=== PATIENT | male | born 1955 | race Caucasian/White ===

== ENCOUNTER → 2020-07-26 16:02 | Outpatient (CLI) | payer MEDICARE, SELFPAY ==
--- NOTE | 2020-07-26 16:05 | DI.MRI.S_ITS ---
PROCEDURE: MR KNEE RT WO/W CON INDICATIONS: Pain in right knee TECHNIQUE: Noncontrast sagittal PD fast spin echo and T2 fast spin echo with fat saturation, sagittal 3-D FLASH with fat saturation; coronal T1 spin echo and PD fast spin echo with fat saturation, and axial T1 spin echo and PD fast spin echo with fat saturation through the knee. Post-contrast axial, coronal, and sagittal T1 spin echo with fat saturation through the knee. COMPARISON: [facility] ([facility]), CR, XR KNEE RT 3V, 06/09/2020, 10:34. FINDINGS: Menisci: Medial meniscus: Macerated ill-defined tear involving the posterior horn and body of the medial meniscus with abnormal signal extending to the undersurface as well as the superior articular surface, and marked truncation of the free margin of the body. There is also near complete extrusion. Lateral meniscus: Oblique undersurface tear involving body of the lateral meniscus noted. Cruciate ligaments: Anterior cruciate ligament: Not well seen in keeping with rupture, technically age indeterminate Posterior cruciate ligament: Intact. Medial structures: The medial collateral ligament: There is medial bowing of the medial collateral ligament, with mild internal signal changes and no complete rupture. There is adjacent soft tissue edema. The appearance could reflect reactive changes to medial compartment pathology, versus low-grade sprain of the MCL. Semimembranosus tendon: Intact. Visualized pes anserinus tendons: Intact. Bursal fluid: none. Lateral structures: The lateral collateral ligament intact. Biceps femoris tendon appears intact. Popliteus tendon grossly unremarkable. Iliotibial band appears intact. Anterior structures: Quadriceps tendon: Intact. Medial patellofemoral ligament: Intact. Lateral patellofemoral ligament: Intact. Patellar tendon: Mild tendinopathy. Anterior soft tissues: Prepatellar and superficial infrapatellar subcutaneous edema/fluid. Deep infrapatellar region: Normal. Bones and cartilage: Marrow: Marrow edema involving the subchondral medial femoral condyle and tibial plateau which could be reactive to degenerative changes. Medial compartment: Full-thickness loss of the femoral and tibial articular cartilage with subchondral sclerosis. There is diffuse bulky osteophyte formation. Lateral compartment: Diffuse partial-thickness loss and intrasubstance signal changes of the femoral and tibial cartilage. Patellofemoral compartment: Diffuse surface fraying and partial thickness loss of the patellar and femoral trochlear cartilage. Joint space: Moderate joint effusion. Bryant's cyst measuring approximately 5 cm in the cephalocaudal dimension. Numerous posterior joint space loose bodies, also seen within the Bryant's cyst measuring up to 1.1 cm for example image 22/9. No suspicious enhancement. Reactive synovitis is noted on postcontrast enhanced pulse sequences. IMPRESSION: Severe degenerative joint disease, with moderate joint effusion and numerous posterior loose bodies as detailed above and depicted on the montage image. Full-thickness articular cartilage loss in the medial compartment. Macerated ill-defined tear involving the body and posterior horn of the medial meniscus, with near complete extrusion. Adjacent MCL changes as above Oblique undersurface tear of the lateral meniscal body. Rupture of the anterior cruciate ligament. Bryant's cyst. No suspicious enhancement Dictated by: Jerel Santamaria M.D. on 07/27/2020 at 8:13 Approved by: Jerel Santamaria M.D. on 07/27/2020 at 8:23
== END ==
PROVIDERS: PCP Physician Assistant Medical; Referring Provider Physician Assistant Medical; Visit Provider Physician Assistant Medical
DX: M25.561 Pain in right knee (principal); S83.241A Other tear of medial meniscus, current injury, right knee, initial encounter; R93.6 Abnormal findings on diagnostic imaging of limbs; S83.281A Other tear of lateral meniscus, current injury, right knee, initial encounter; S83.511A Sprain of anterior cruciate ligament of right knee, initial encounter; M17.11 Unilateral primary osteoarthritis, right knee; M71.21 Synovial cyst of popliteal space [Baker], right knee; M25.461 Effusion, right knee; G89.29 Other chronic pain; Z98.890 Other specified postprocedural states
CPT/HCPCS: 73723; A9579

== ENCOUNTER → 2021-04-25 11:25 | Outpatient (CLI) | payer MEDICARE, SELFPAY ==
[2021-04-25 19:00] LABS: Alanine Aminotransferase 23 IU/L (<50); Albumin 4.7 g/dL (3.5-5.0); Albumin Globulin Ratio 1.9 (1.0-2.8); Alkaline Phosphatase 85 U/L (38-126); Aspartate Aminotransferase 29 IU/L (17-59); BUN Creatinine Ratio 17.7 (6-22); Bilirubin Total 0.6 mg/dL (0.2-1.3); Blood Urea Nitrogen 22 mg/dL (9-20); Calcium 9.3 mg/dL (8.4-10.2); Carbon Dioxide 27 mmol/L (22-32); Chloride 102 mmol/L (98-107); Cholesterol 211 mg/dL (140-199); Estimated Glomerular Filt Rate 58.3 mL/min (>60); Globulin 2.5 g/dL (1.7-4.1); Glucose 93 mg/dL (80-110); HDL Cholesterol 53 mg/dL (40-60); HEMOLYSIS < 15 (0-50); LDL Cholesterol Calculated 133 mg/dL (<100); Potassium 4.8 mmol/L (3.4-5.1); Sodium 137 mmol/L (137-145); Total Protein 7.2 g/dL (6.3-8.2); Triglycerides 126 mg/dL (35-150)
[2021-04-25 19:16] LABS: Add Manual Diff / Slide Review NO; Basophils Absolute Auto 0 /uL (0-100); Basophils Percent Auto 0.8 % (0-2); Eosinophils Absolute Auto 100 /uL (0-450); Eosinophils Percent Auto 2.5 % (2-4); Hematocrit 45.2 % (41-53); Hemoglobin 15.4 g/dL (13.5-17.5); Lymphocytes Absolute Auto 1300 /uL (1100-4500); Mean Corpuscular HGB Conc 34.1 % (30-36); Mean Corpuscular Volume 90.8 fL (80-100); Monocytes Absolute Auto 600 /uL (0-900); Monocytes Percent Auto 11.7 % (3-14); Neutrophils Absolute Auto 3400 /uL (1500-7000); Platelet Count 193 X10^3/uL (150-400); Red Blood Cell Count 4.98 X10^6/uL (4.5-5.9); Red Cell Distribution Width 13.8 % (11.6-14.8); White Blood Cell Count 5.5 X10^3/uL (4.5-11.0)
[2021-04-25 19:20] LABS: TSH w/ Reflex to FT4 1.38 uIU/mL (0.47-4.68)
[2021-04-25 19:21] LABS: Prostate Specific Antigen 0.784 ng/mL (0.10-4.00)
== END ==
PROVIDERS: PCP Physician Assistant Medical; Visit Provider Physician Assistant Medical
DX: Z12.11 Encounter for screening for malignant neoplasm of colon (principal); Z12.5 Encounter for screening for malignant neoplasm of prostate; Z13.0 Encounter for screening for diseases of the blood and blood-forming organs and certain disorders involving the immune mechanism; Z13.220 Encounter for screening for lipoid disorders; Z13.228 Encounter for screening for other metabolic disorders; Z13.29 Encounter for screening for other suspected endocrine disorder
CPT/HCPCS: 80053; 80061; 84153; 84443; 85025

== ENCOUNTER → 2021-12-03 10:20 | Outpatient (CLI) | payer MEDICARE, SELFPAY ==
[2021-12-03 19:23] LABS: Alanine Aminotransferase 31 IU/L (<50); Albumin 4.3 g/dL (3.5-5.0); Albumin Globulin Ratio 1.6 (1.0-2.8); Alkaline Phosphatase 96 U/L (38-126); Aspartate Aminotransferase 34 IU/L (17-59); BUN Creatinine Ratio 14.5 (6-22); Bilirubin Total 0.9 mg/dL (0.2-1.3); Blood Urea Nitrogen 18 mg/dL (9-20); Calcium 9.1 mg/dL (8.4-10.2); Carbon Dioxide 25 mmol/L (22-32); Chloride 102 mmol/L (98-107); Cholesterol 201 mg/dL (140-199); Estimated Glomerular Filt Rate > 60 mL/min (>60); Globulin 2.7 g/dL (1.7-4.1); Glucose 100 mg/dL (80-110); HDL Cholesterol 50 mg/dL (40-60); HEMOLYSIS 24 (0-50); LDL Cholesterol Calculated 129 mg/dL (<100); Potassium 4.4 mmol/L (3.4-5.1); Sodium 137 mmol/L (137-145); Triglycerides 108 mg/dL (35-150)
== END ==
PROVIDERS: PCP Physician Assistant Medical; Visit Provider Physician Assistant Medical
DX: E78.5 Hyperlipidemia, unspecified (principal); R94.4 Abnormal results of kidney function studies
CPT/HCPCS: 80053; 80061

== ENCOUNTER → 2022-06-19 10:45 | Outpatient (CLI) | payer MEDICARE, SELFPAY ==
[2022-06-19 20:08] LABS: Alanine Aminotransferase 33 IU/L (<50); Albumin 4.1 g/dL (3.5-5.0); Albumin Globulin Ratio 1.6 (1.0-2.8); Alkaline Phosphatase 90 U/L (38-126); Aspartate Aminotransferase 30 IU/L (17-59); BUN Creatinine Ratio 20.6 (6-22); Bilirubin Total 0.9 mg/dL (0.2-1.3); Blood Urea Nitrogen 21 mg/dL (9-20); Calcium 8.8 mg/dL (8.4-10.2); Carbon Dioxide 25 mmol/L (22-32); Chloride 103 mmol/L (98-107); Cholesterol 146 mg/dL (140-199); Estimated Glomerular Filt Rate > 60 mL/min (>60); Globulin 2.5 g/dL (1.7-4.1); Glucose 99 mg/dL (80-110); HDL Cholesterol 53 mg/dL (40-60); HEMOLYSIS < 15 (0-50); LDL Cholesterol Calculated 76 mg/dL (<100); Potassium 4.5 mmol/L (3.4-5.1); Sodium 136 mmol/L (137-145); Total Protein 6.6 g/dL (6.3-8.2); Triglycerides 84 mg/dL (35-150)
[2022-06-19 20:36] LABS: Prostate Specific Antigen Scrn 0.984 ng/mL (0.1-4.0)
[2022-06-20 23:19] LABS: x Labcorp Estim. Avg Glu (eAG) 117 mg/dL (.); x Labcorp Hemoglobin A1c 5.7 % (4.8-5.6)
== END ==
PROVIDERS: PCP Physician Assistant; Visit Provider Physician Assistant
DX: E78.5 Hyperlipidemia, unspecified (principal); Z12.5 Encounter for screening for malignant neoplasm of prostate
CPT/HCPCS: 80053; 80061; 83036; G0103

== ENCOUNTER → 2023-06-25 12:38 | Outpatient (CLI) | payer MEDICARE, SELFPAY ==
[2023-06-25 19:51] LABS: Alanine Aminotransferase 27 IU/L (<50); Albumin 4.2 g/dL (3.5-5.0); Albumin Globulin Ratio 1.9 (1.0-2.8); Alkaline Phosphatase 75 U/L (38-126); Aspartate Aminotransferase 31 IU/L (17-59); BUN Creatinine Ratio 19.5 (6-22); Blood Urea Nitrogen 23 mg/dL (9-20); Calcium 9.1 mg/dL (8.4-10.2); Carbon Dioxide 28 mmol/L (22-32); Chloride 105 mmol/L (98-107); Cholesterol 139 mg/dL (140-199); Estimated Glomerular Filt Rate > 60 mL/min (>60); Globulin 2.2 g/dL (1.7-4.1); Glucose 91 mg/dL (80-110); HDL Cholesterol 54 mg/dL (40-60); HEMOLYSIS < 15 (0-50); LDL Cholesterol Calculated 71 mg/dL (<100); Potassium 4.2 mmol/L (3.4-5.1); Sodium 136 mmol/L (137-145); Total Protein 6.4 g/dL (6.3-8.2); Triglycerides 72 mg/dL (35-150)
[2023-06-25 19:54] LABS: Add Manual Diff / Slide Review NO; Basophils Absolute Auto 100 /uL (0-100); Eosinophils Absolute Auto 200 /uL (0-450); Eosinophils Percent Auto 2.7 % (2-4); Hematocrit 42.1 % (41-53); Hemoglobin 14.5 g/dL (13.5-17.5); Lymphocytes Absolute Auto 1500 /uL (1100-4500); Lymphocytes Percent Auto 24.9 % (25-40); Mean Corpuscular HGB Conc 34.4 % (30-36); Mean Corpuscular Hemoglobin 31.5 PG (26-34); Mean Corpuscular Volume 91.6 fL (80-100); Monocytes Absolute Auto 700 /uL (0-900); Monocytes Percent Auto 11.4 % (3-14); Neutrophils Absolute Auto 3600 /uL (1500-7000); Platelet Count 159 X10^3/uL (150-400); Red Blood Cell Count 4.59 X10^6/uL (4.5-5.9); Red Cell Distribution Width 13.5 % (11.6-14.8); White Blood Cell Count 5.9 X10^3/uL (4.5-11.0)
[2023-06-25 20:21] LABS: Prostate Specific Antigen Scrn 0.828 ng/mL (0.1-4.0); TSH w/ Reflex to FT4 0.97 uIU/mL (0.47-4.68)
== END ==
PROVIDERS: PCP Physician Assistant Medical; Visit Provider Physician Assistant Medical
DX: N52.9 Male erectile dysfunction, unspecified (principal); N40.0 Benign prostatic hyperplasia without lower urinary tract symptoms; E78.5 Hyperlipidemia, unspecified; R94.4 Abnormal results of kidney function studies; R39.11 Hesitancy of micturition; R22.30 Localized swelling, mass and lump, unspecified upper limb; Z12.5 Encounter for screening for malignant neoplasm of prostate
CPT/HCPCS: 80053; 80061; 84443; 85025; G0103

== ENCOUNTER → 2024-06-30 10:15 | Outpatient (CLI) | payer MEDICARE, SELFPAY ==
[2024-06-30 20:28] LABS: Add Manual Diff / Slide Review NO; Basophils Absolute Auto 0 /uL (0-100); Basophils Percent Auto 0.9 % (0-2); Eosinophils Absolute Auto 200 /uL (0-450); Eosinophils Percent Auto 3.5 % (2-4); Hemoglobin 14.8 g/dL (13.5-17.5); Lymphocytes Absolute Auto 1200 /uL (1100-4500); Lymphocytes Percent Auto 22.5 % (25-40); Mean Corpuscular HGB Conc 34.4 % (30-36); Mean Corpuscular Hemoglobin 31.7 PG (26-34); Mean Corpuscular Volume 92.1 fL (80-100); Monocytes Absolute Auto 900 /uL (0-900); Monocytes Percent Auto 17.1 % (3-14); Neutrophils Absolute Auto 3000 /uL (1500-7000); Platelet Count 152 X10^3/uL (150-400); Red Blood Cell Count 4.67 X10^6/uL (4.5-5.9); Red Cell Distribution Width 13.5 % (11.6-14.8); White Blood Cell Count 5.3 X10^3/uL (4.5-11.0)
[2024-06-30 20:38] LABS: Alanine Aminotransferase 32 IU/L (<50); Albumin 4.4 g/dL (3.5-5.0); Albumin Globulin Ratio 1.8 (1.0-2.8); Alkaline Phosphatase 93 U/L (38-126); Aspartate Aminotransferase 40 IU/L (17-59); Bilirubin Total 1.1 mg/dL (0.2-1.3); Blood Urea Nitrogen 21 mg/dL (9-20); C-Reactive Protein Quant 1.1 mg/dL (<1.0); Carbon Dioxide 25 mmol/L (22-32); Chloride 105 mmol/L (98-107); Cholesterol 144 mg/dL (140-199); Estimated Glomerular Filt Rate > 60 mL/min (>60); Globulin 2.4 g/dL (1.7-4.1); Glucose 99 mg/dL (70-99); HDL Cholesterol 48 mg/dL (40-60); HEMOLYSIS 18 (0-50); LDL Cholesterol Calculated 84 mg/dL (<100); Potassium 4.5 mmol/L (3.4-5.1); Sodium 137 mmol/L (137-145); Total Protein 6.8 g/dL (6.3-8.2); Triglycerides 58 mg/dL (35-150)
[2024-06-30 20:39] LABS: Hemoglobin A1C% w Est Avg Glu 5.1 % (4.0-6.0)
[2024-06-30 20:43] LABS: Erythrocyte Sedimentation Rate 6 MM/HR (0-15); Rheumatoid Factor < 8.6 IU/mL (<12.0)
[2024-06-30 21:05] LABS: TSH w/ Reflex to FT4 1.12 uIU/mL (0.47-4.68)
[2024-06-30 21:27] LABS: Prostate Specific Antigen Scrn 0.843 ng/mL (0.1-4.0)
[2024-07-05 11:39] LABS: ANA Screen, IFA Negative (.)
== END ==
PROVIDERS: PCP Physician Assistant Medical; Visit Provider Physician Assistant Medical
DX: Z12.5 Encounter for screening for malignant neoplasm of prostate (principal); Z13.220 Encounter for screening for lipoid disorders; Z13.29 Encounter for screening for other suspected endocrine disorder; G47.30 Sleep apnea, unspecified; N40.1 Benign prostatic hyperplasia with lower urinary tract symptoms; R35.1 Nocturia; E78.49 Other hyperlipidemia; R94.4 Abnormal results of kidney function studies; Z12.11 Encounter for screening for malignant neoplasm of colon; R20.0 Anesthesia of skin
CPT/HCPCS: 80053; 80061; 83036; 84443; 85025; 85651; 86038; 86140; 86430; G0103

== ENCOUNTER → 2025-01-05 09:57 | Outpatient (CLI) | payer MEDICARE, SELFPAY ==
[2025-01-05 18:32] LABS: Add Manual Diff / Slide Review NO; Hematocrit 45.1 % (41-53); Hemoglobin 15.3 g/dL (13.5-17.5); Lymphocytes Absolute Auto 1000 /uL (1100-4500); Mean Corpuscular HGB Conc 33.9 % (30-36); Mean Corpuscular Hemoglobin 31.1 PG (26-34); Mean Corpuscular Volume 91.8 fL (80-100); Platelet Count 171 X10^3/uL (150-400)
[2025-01-05 18:53] LABS: Alanine Aminotransferase 30 IU/L (<50); Albumin 4.2 g/dL (3.5-5.0); Albumin Globulin Ratio 1.7 (1.0-2.8); Alkaline Phosphatase 74 U/L (38-126); Blood Urea Nitrogen 26 mg/dL (9-20); Calcium 9.3 mg/dL (8.4-10.2); Carbon Dioxide 25 mmol/L (22-32); Chloride 104 mmol/L (98-107); Estimated Glomerular Filt Rate > 60 mL/min (>60); Globulin 2.5 g/dL (1.7-4.1); Glucose 109 mg/dL (70-99); HEMOLYSIS 25 (0-50); Potassium 4.5 mmol/L (3.4-5.1); Sodium 137 mmol/L (137-145); Total Protein 6.7 g/dL (6.3-8.2)
[2025-01-05 20:01] LABS: Folate 12.8 ng/mL (2.76-20.0); Vitamin B12 539 pg/mL (239-931)
[2025-01-07 12:36] LABS: Albumin 4.0 g/dL (2.9-4.4); Alpha-1-Globulin 0.2 g/dL (0.0-0.4); Alpha-2-Globulin 0.6 g/dL (0.4-1.0); Gamma Globulin 0.9 g/dL (0.4-1.8)
== END ==
PROVIDERS: PCP Physician Assistant Medical; Visit Provider Student in an Organized Health Care Education/Training Program
DX: G60.8 Other hereditary and idiopathic neuropathies (principal); G56.03 Carpal tunnel syndrome, bilateral upper limbs; R26.89 Other abnormalities of gait and mobility; M51.26 Other intervertebral disc displacement, lumbar region
CPT/HCPCS: 80053; 82607; 82746; 84155; 84165; 84207; 84425; 84446; 85025; 85651; 86592